=== PATIENT | female | born 1950 | race Caucasian/White ===

== ENCOUNTER 2021-11-27 15:24 | Emergency (ER) | payer OTHER ==
[2021-11-27 15:53] VITALS: BP 160/67; PULSE 71; RESP 17; TEMP 97.9; BMI 26.5
[2021-11-27] MEDS ORDERED: ACETAMINOPHEN 500 MG TABLET (FP) PO ONE (17:36)
[2021-11-27] MEDS ORDERED: LIDOCAINE 5% TOPICAL PATCH TP ONE (17:36)
[2021-11-27] MEDS ORDERED: diazePAM 2 MG TABLET PO ONE (17:39)
[2021-11-27] MEDS ORDERED: LIDOCAINE 5% TOPICAL PATCH ONE (17:51)
[2021-11-27] MEDS ORDERED: ACETAMINOPHEN 500 MG TABLET (FP) ONE (17:52)
[2021-11-27] MEDS ORDERED: diazePAM 2 MG TABLET ONE (17:52)
[2021-11-27 18:28] LABS: URINE APPEARANCE CLEAR; URINE BILIRUBIN NEGATIVE (NEGATIVE); URINE COLOR YELLOW; URINE GLUCOSE (UA) NEGATIVE (NEGATIVE); URINE KETONE NEGATIVE (NEGATIVE); URINE LEUK ESTERASE NEGATIVE (NEGATIVE); URINE NITRITE NEGATIVE (NEGATIVE); URINE PROTEIN NEGATIVE (NEGATIVE); URINE UROBILINOGEN 0.2 mg/dL (0.2-1.0)
[2021-11-28] MEDS ORDERED: LIDOCAINE PATCH REMOVAL MC SCH (06:00)
== END 2021-11-27 19:16 | disposition home or self-care (01) ==
LOC: JERFT 15:24
DX: M54.50 Low back pain, unspecified (principal)
CPT/HCPCS: 72100-TC-FY; 81003; 99284-25

== ENCOUNTER 2021-11-28 11:04 | Emergency (ER) | payer OTHER ==
[2021-11-28 11:20] VITALS: BP 156/75; PULSE 93; RESP 17; TEMP 97.6; BMI 26.5
[2021-11-28] MEDS ORDERED: KETOROLAC TROMETHAMINE 30 MG/1 ML VIAL IM ONE (13:50)
[2021-11-28] MEDS ORDERED: KETOROLAC TROMETHAMINE 30 MG/1 ML VIAL ONE (13:53)
== END 2021-11-28 14:26 | disposition home or self-care (01) ==
LOC: JERFT 11:04
PROC: 3E0233Z Introduction of Anti-inflammatory into Muscle, Percutaneous Approach (ICD-10-PCS; principal; 2021-11-28)
DX: M54.50 Low back pain, unspecified (principal)
CPT/HCPCS: 99284-25